=== PATIENT | female | born 1950 | race Caucasian/White ===

== ENCOUNTER → 2016-06-21 | Outpatient (CLI) | payer BC ==
[~2016-06-21] MED LIST: NAPROSYN500 MG PO
--- NOTE | ~2016-06-21 | TH ---
Unit #: [id number] #: [id number] Patient: XENA GUERRERO [id number] [address] [place], [place] [address] [id number] O MR#: [id number] NAME: XENA GUERRERO : 1950 SEX: F STUDY DATE/TIME: UNIT: [facility] ROOM: STUDY DESCRIPTION: Attending Physician: Holger Frederick M.D. Referring Physician: Holger Frederick M.D. Primary Care Physician: Holger Frederick M.D. CARDIOLOGY REPORT EXAM Stress nuclear and ECG. INDICATION Dyspnea, inability to exercise adequately, for the diagnosis of obstructive coronary artery disease contributing to the dyspnea. SUMMARY Patient received Lexiscan intravenously while at rest, as well as technetium 99 Cardiolite 10.4 and 32 mCi at rest and stress, respectively. Appropriate views were obtained. FINDINGS The resting ECG and the stress ECG showed ST sagging in leads II, III, AVF, and V4-V6. With stress, there were no diagnostic ST shifts, no dysrhythmias, and no heart block. Patient did not experience any symptoms. The heart rate increased from 53 to 59 and blood pressure decreased from 132/86 to 129/89. Perfusion images both at rest and stress showed intestinal artifact, slightly less with stress. There is chest wall attenuation artifact, but otherwise, perfusion is normal and equivalent between rest and stress. Gated perfusion wall motion analysis demonstrates normal wall motion throughout the myocardium with end-diastolic volume of 84 mL and ejection fraction 62%. Planar images demonstrate no significant patient motion either at rest or stress. There is no significant lung uptake or RV enlargement. The LV appears upper limits of normal in size. Summed stress score is zero. IMPRESSION 1. Myocardial perfusion scan shows no ischemia or infarction. Normal study. 2. Normal wall motion with excellent ejection fraction and normal left ventricle size. 3. Normal Lexiscan stress ECG. 1. Dictated by... Yaya Wolf M.D. Taisha TD: 06/22/2016 20:12 JOB #: [id number] Unit #: [id number] #: [id number] Patient: XENA GUERRERO CARDIOLOGY REPORT Page 1 of 1 X Yaya Wolf MD CARDIOLOGY REPORT
== END | disposition home or self-care (01) ==
LOC: CNUC 07:42
DX: R07.89 Other chest pain (principal)
CPT/HCPCS: 78452; 93017; A9500; J2785